=== PATIENT | female | born 1970 | race Caucasian/White ===

== ENCOUNTER 2016-11-28 19:37 | Emergency (ER) | payer MEDICAID ==
[~2016-11-28] VITALS: Ht 160 cm; Wt 74.8 kg
[2016-11-28 20:09] VITALS: BP 141/76
--- NOTE | 2016-11-28 20:26 | NUR ---
PT TAKEN TO OF
[2016-11-28 21:07] VITALS: BP 137/62
--- NOTE | 2016-11-28 21:07 | NUR ---
Patient discharged with v/s stable. Written and verbal after care instructions given and explained. Patient alert, oriented and verbalized understanding of instructions. Ambulatory with steady gait. All questions addressed prior to discharge. ID band removed. Patient advised to follow up with PMD. Rx of Motrin, Meclizine, Azithromycin, and Prednison given. Patient educated on indication of medication including possible reaction and side effects. Opportunity to ask questions provided and answered.
== END 2016-11-28 21:07 | disposition home or self-care (01) ==
LOC: MED 19:37
DX: H66.91 Otitis media, unspecified, right ear (principal); R51 Headache; Z88.0 Allergy status to penicillin
CPT/HCPCS: 99283

== ENCOUNTER 2022-03-18 10:52 | Emergency (ER) | payer MEDICAID, OTHER ==
[~2022-03-18] VITALS: Ht 157.5 cm; Wt 72.1 kg
[2022-03-18 11:00] VITALS: BP 153/79
[2022-03-18] MEDS ORDERED: DICYCLOMINE HCL LIQUID 20 MG, ALUMINUM HYD/MAG/SIMETHICONE 30 ML, LIDOCAINE VISCOUS 2% ... PO ONE ×3 (12:10)
[2022-03-18] MEDS ORDERED: DICYCLOMINE HCL LIQUID 10 MG/5 ML UDC ONE (12:17)
[2022-03-18] MEDS ORDERED: ALUMINUM HYD/MAG/SIMETHICONE 30 ML UDC ONE (12:17)
[2022-03-18] MEDS ORDERED: OMEP40EC24 PO (12:59)
[2022-03-18 13:18] VITALS: BP 145/72
== END 2022-03-18 13:20 | disposition home or self-care (01) ==
LOC: MED 10:52
DX: R10.13 Epigastric pain (principal); Z88.0 Allergy status to penicillin; Z79.899 Other long term (current) drug therapy; Z98.890 Other specified postprocedural states
CPT/HCPCS: 81002; 81025; 99284